=== PATIENT | female | born 1995 | race Caucasian/White ===

== ENCOUNTER 2020-10-22 00:08 | Emergency (ER) | payer OTHER ==
[2020-10-22 01:06] LABS: HEMOGLOBIN 11.5 gm/dl (12.3-15.3); RED BLOOD COUNT 3.76 M/UL (4.00-5.10); WHITE BLOOD COUNT 8.8 K/UL (4.5-11.0)
[2020-10-22 01:24] LABS: BUN/CREATININE RATIO 19 (0-10)
== END 2020-10-22 02:45 | disposition home or self-care (01) ==
LOC: ER1 00:08
PROVIDERS: Internal Medicine
DX: G40.909 Epilepsy, unspecified, not intractable, without status epilepticus (principal); F17.210 Nicotine dependence, cigarettes, uncomplicated; Z87.442 Personal history of urinary calculi
CPT/HCPCS: 70450; 80053; 80307; 81001; 84484; 84703; 85025; 99284; G0480

== ENCOUNTER 2022-02-25 07:07 | Emergency (ER) | payer OTHER ==
[2022-02-25 10:34] LABS: HEMOGLOBIN 12.4 gm/dl (12.3-15.3); RED BLOOD COUNT 4.13 M/UL (4.00-5.10); WHITE BLOOD COUNT 8.5 K/UL (4.5-11.0)
== END 2022-02-25 10:58 | disposition left against medical advice (07) ==
LOC: ER1 07:07
PROVIDERS: Family Medicine
DX: S40.022A Contusion of left upper arm, initial encounter (principal); S40.021A Contusion of right upper arm, initial encounter; S80.12XA Contusion of left lower leg, initial encounter; S80.11XA Contusion of right lower leg, initial encounter; F15.10 Other stimulant abuse, uncomplicated; F12.10 Cannabis abuse, uncomplicated; F17.200 Nicotine dependence, unspecified, uncomplicated; X58.XXXA Exposure to other specified factors, initial encounter
CPT/HCPCS: 71045; 80307; 81001; 85025; 99283